=== PATIENT | male | born 2000 | race Caucasian/White ===

== ENCOUNTER 2021-04-09 22:52 | Emergency (ER) | payer BC, OTHER ==
--- NOTE | 2021-04-10 00:01 | CR ---
Indication: Cough. Technique: PA and lateral views the chest. Comparison: None Findings: The heart is normal in size. The lungs are clear. No infiltrate, pleural effusion, or pneumothorax is identified. Impression: No acute cardiopulmonary process Dictated by Mely Garza MD @ 04/10/2021 12:01:18 AM (Electronically Signed)
[2021-04-10] MEDS ORDERED: Ibuprofen 600 MG Tab PO ONE (00:02)
--- NOTE | 2021-04-10 00:03 | EDM.PDOC ---
ED HPI GENERAL MEDICAL PROBLEM - General Chief Complaint: General Stated Complaint: COVID SYMPTOMS Time Seen by Provider: 04/10/21 00:00 - History of Present Illness INITIAL COMMENTS - FREE TEXT/NARRATIVE: HISTORY AND PHYSICAL: History of present illness: This is a 20-year-old healthy gentleman with history of hypertension who presents ER today secondary to Covid concerns. Patient is not vaccinated for coronavirus. Patient reports that over the last 1 to 2 days he has had fevers, cough, sore throat, generalized weakness. Patient denies any nausea, vomiting, diarrhea, dysuria, frequency, urgency, abdominal pain, chest pain. Patient denies any known Covid exposures. Patient denies any nuchal rigidity, photophobia. Patient reports has been tolerating p.o. solids and liquids well. Patient denies any rashes. Review of systems: As per history of present illness and below otherwise all systems reviewed and negative. Past medical history: As per history of present illness and as reviewed below otherwise noncont ributory. Surgical history: As per history of present illness and as reviewed below otherwise noncontributory. Social history: No reported history of drug abuse. Family history: As per history of present illness and as reviewed below otherwise noncontributory. Physical exam: This patient was seen and evaluated during the 2019 SARS-CoV-2 novel coronavirus pandemic period. Community viral transmission is ongoing at time of this encounter and the emergency department is operating under pandemic response procedures. Constitutional: Patient is oriented to person, place, and time. Appears well- developed and well-nourished. No distress. HEENT: Moist mucous membranes Head: Normocephalic and atraumatic Eyes: Right eye exhibits no discharge. Left eye exhibits no discharge. No scleral icterus Neck: Normal range of motion. No tracheal deviation present. Cardiovascular: Normal rate and regular rhythm. Pulmonary: Effort normal, no respiratory distress. Abdominal: No distention Musculoskeletal: Normal range of motion Neurologic: Alert and oriented to person, place and time. Skin: [employer], warm and dry. Psychiatric: Normal mood and affect. Behavior is normal. Judgment and thought content normal. Nursing note and vital signs have been reviewed Patient's oropharynx is clear with minimal erythema. No tender lymphadenopathy. Neck supple, no nuchal rigidity, no photophobia, no Kernig's sign or Brudzinski sign, patient does not present with signs or symptoms of be consistent with meningitis. Diagnostics: Chest Xray: Normal cardiac silhouette No infiltrates or effusions identified. No PTX No evidence of acute bony fracture. As interpreted by ER MD: Alexa Saba: Ibuprofen 600 mg p.o. Assessment and plan: 20-year-old who presents ER today secondary signs symptoms concerning for Covid. Patient has been given medication to assist with his fevers. Patient be reevaluated after test results and x-ray. 1:18 AM: Patient's Covid test is positive. Patient's pulse ox has remained greater than 95% on room air. At this time, the patient does not meet criteria for inpatient level of care. Patient does not meet criteria for Regeneron treatment. Patient has been instructed to obtain a pulse oximeter to follow his oxygen level and to return to the ER if it drops below 90%. Patient was also instructed to return to the ED for any new or concerning symptoms including worsening shortness of breath. He has been informed to notify all his contacts regarding his test results and to isolate. Patient be given phone number for the [facility]. 1. Your COVID-19 screening is positive. That means you do have the coronavirus and you are considered contagious. Your vital signs and oxygen saturation are well enough that you were able to monitor your symptoms at home. Continue to monitor for trouble breathing, new confusion or inability to arouse, bluish lips or face or any of the other symptoms we discussed -if this occurs please return to the emergency room. 2. Please self quarantine over the next 10 days. Inform any persons that you have been in contact with since you started becoming symptomatic that you have tested positive; they should be made aware and take the appropriate steps as needed. 3. You can take NyQuil during the evening to help get a restful night sleep. May alternate Tylenol and ibuprofen as needed for pain and fever management. 4. [facility] and following up with you. The [place] COVID 19 Hotline phone number , They are open Sunday - Sunday 7am - 7pm. Follow up with your primary care provider for re-evaluation and re-testing after the 10 day quarantine and discuss when you should be seen. Reassessment at the time of disposition demonstrates that the patient is in no acute distress. The patient has remained stable throughout the entire ED visit and is without objective evidence for acute process requiring urgent intervention or hospitalization. The patient is stable for discharge, counseling is provided as documented above, discussed symptomatic treatment and specific conditions for return. I have spoken with the patient/caregiver and discussed todays findings, in addition to providing specific details for the plan of care. Questions are answered and there is agreement with the plan. Definitive disposition and diagnosis as appropriate pending reevaluation and review of above. body aches Pain Score (Numeric/FACES): 5 - Related Data Allergies Allergy/AdvReac Type Severity Reaction Status Date / Time No Known Allergies Allergy Verified 04/09/21 23:49 Home Meds: Home Meds Enalapril Maleate 5 mg PO DAILY 04/09/21 [History] Past Medical History Cardiovascular History: Reports: Hypertension Social & Family History - Family History Family Medical History: No Pertinent Family History - Tobacco Use Tobacco Use Status *Q: Never Tobacco User - Recreational Drug Use Recreational Drug Use: No ED ROS GENERAL - Review of Systems Review Of Systems: See Below ED EXAM, GENERAL - Physical Exam Exam: See Below Course - Vital Signs Last Recorded V/S: Last Vital Signs Temp 100.9 F H 04/09/21 23:42 Pulse 98 04/09/21 23:42 Resp 18 04/09/21 23:42 BP 151/99 H 04/09/21 23:42 Pulse Ox 95 04/09/21 23:42 - Orders/Labs/Meds Labs: Laboratory Tests 04/10/21 Range/Units 00:09 SARS-CoV-2 RNA (STEPHANIE) POSITIVE H (NEGATIVE) Meds: Medications Discontinued Medications Generic Name Dose Route Start Last Admin Trade Name Westq PRN Reason Stop Dose Admin Ibuprofen 600 mg 04/10/21 00:02 04/10/21 00:11 Ibuprofen 600 Mg Tab PO 04/10/21 00:03 600 mg ONETIME ONE Administration Departure - Departure Time of Disposition: 01:19 Disposition: Home, Self-Care 01 Condition: Good Clinical Impression: COVID-19 virus infection, Hypertension - Discharge Information Instructions: 10 Things You Can Do to Manage Your COVID-19 Symptoms at Home - [facility] (01/28/2021), Emergency Use Authorization (EUA) of the [employer] COVID-19 Vaccine: Fact Sheet for Recipients and Caregivers - [facility] (01/07/2021), Symptoms of COVID-19 - [facility] (09/06/2020), COVID-19: Quarantine vs. Isolation - [facility] (07/01/2020) Referrals: Reji Galindo [Primary Care Provider] - Forms: ED Department Discharge Additional Instructions: You were seen and evaluated in ER today secondary to signs and symptoms that were concerning for coronavirus. Your coronavirus test is positive. Your oxygen level has maintained above 92% in the ER. Please return the ER if you start developing any new or concerning symptoms or worsening shortness of breath. I would recommend that you purchase a pulse oximeter at one of the pharmacies to follow your oxygen level and if your oxygen level drops below 90% he should return to the ER to be reevaluated. You can take ibuprofen and Tylenol as needed for fever. Drink plenty of liquids and get plenty of rest. 1. Your COVID-19 screening is positive. That means you do have the coronavirus and you are considered contagious. Your vital signs and oxygen saturation are well enough that you were able to monitor your symptoms at home. Continue to mo nitor for trouble breathing, new confusion or inability to arouse, bluish lips or face or any of the other symptoms we discussed -if this occurs please return to the emergency room. 2. Please self quarantine over the next 10 days. Inform any persons that you have been in contact with since you started becoming symptomatic that you have tested positive; they should be made aware and take the appropriate steps as needed. 3. You can take NyQuil during the evening to help get a restful night sleep. May alternate Tylenol and ibuprofen as needed for pain and fever management. 4. The [facility] department will be calling you and following up with you. The [place] COVID 19 Hotline phone number , They are open Sunday - Sunday 7am - 7pm. Follow up with your primary care provider for re-evaluation and re-testing after the 10 day quarantine and discuss when you should be seen. The following information is given to patients seen in the emergency department who are being discharged to home. This information is to outline your options for follow-up care. We provide all patients seen in our emergency department with a follow-up referral. The need for follow-up, as well as the timing and circumstances, are variable depending upon the specifics of your emergency department visit. If you don't have a primary care physician on staff, we will provide you with a referral. We always advise you to contact your personal physician following an emergency department visit to inform them of the circumstance of the visit and for follow-up with them and/or the need for any referrals to a consulting specialist. The emergency department will also refer you to a specialist when appropriate. This referral assures that you have the opportunity for follow-up care with a specialist. All of these measure are taken in an effort to provide you with optimal care, which includes your follow-up. Under all circumstances we always encourage you to contact your private physician who remains a resource for coordinating your care. When calling for follow-up care, please make the office aware that this follow-up is from your recent emergency room visit. If for any reason you are refused follow-up, please contact the [facility] Emergency Department at and asked to speak to the emergency department charge nurse. [facility] - Primary Care [address] [place] [address] [address] Sepsis Event Note (ED) - Evaluation Sepsis Screening Result: No Definite Risk - Focused Exam Vital Signs: Vital Signs Temp Pulse Resp BP Pulse Ox 04/09/21 23:42 100.9 F H 98 18 151/99 H 95
== END 2021-04-10 01:35 | disposition home or self-care (01) ==
LOC: MW.ED 22:52
DX: U07.1 COVID-19 (principal); I10 Essential (primary) hypertension
CPT/HCPCS: 71046; 87635; 99283; A9270; U0002